=== PATIENT | male | born 1955 | race Caucasian/White ===

== ENCOUNTER → 2016-06-26 12:38 | Outpatient (CLI) | payer OTHER | END | disposition home or self-care (01) | LOC: D.ECHO 12:38 | DX: I63.139 Cerebral infarction due to embolism of unspecified carotid artery (principal); F17.218 Nicotine dependence, cigarettes, with other nicotine-induced disorders; Z91.19 Patient's noncompliance with other medical treatment and regimen ==

== ENCOUNTER → 2016-07-13 10:00 | Outpatient (CLI) | payer OTHER | END | disposition home or self-care (01) | LOC: D.CT 10:00 | DX: I63.131 Cerebral infarction due to embolism of right carotid artery (principal) ==

== ENCOUNTER → 2017-12-24 10:33 | Outpatient (CLI) | payer SELFPAY | END | disposition home or self-care (01) | LOC: D.RT 10:33 | DX: J44.9 Chronic obstructive pulmonary disease, unspecified (principal) ==

== ENCOUNTER → 2017-12-24 17:47 | Outpatient (CLI) | payer OTHER | END | disposition home or self-care (01) | LOC: D.LABREF 17:47 | DX: J44.9 Chronic obstructive pulmonary disease, unspecified (principal) ==

== ENCOUNTER → 2018-01-21 10:52 | Outpatient (CLI) | payer OTHER | END | disposition home or self-care (01) | LOC: D.CT 01-20 11:00 | DX: R93.89 Abnormal findings on diagnostic imaging of other specified body structures (principal) ==

== ENCOUNTER 2018-01-28 07:41 | Outpatient (CLI) | payer OTHER ==
[~2018-01-28] VITALS: Ht 172.7 cm; Wt 100.0 kg
--- NOTE | ~2018-01-28 | OP ---
PATIENT NAME: RAJ BARROW MEDICAL RECORD: [id number] :53 LOCATION:[facility] ADMISSION DATE: SURGEON: FELIX GOULD MD DATE OF OPERATION: 01/28/2018 PROCEDURE: Fiberoptic bronchoscopy. INDICATION: Mr. Barrow is a 62-year-old gentleman who has a history of smoking, chronic cough and he has a CT scan of the chest, which showed subtle bronchiectasis as well as infiltrate in left lower lobe, left mid lung area. Fiberoptic bronchoscopy was carried out to obtain specimen for culture and sensitivity. MONITORING: EKG, pulse, and blood pressure were monitored throughout the procedure. MEDICATIONS: Versed 4 mg IV in divided doses, fentanyl 50 mcg IV times 1, morphine sulfate 4 mg IM, Phenergan 12.5 mg IV times 1, atropine 0.6 mg IM times 1. DESCRIPTION OF PROCEDURE: After obtaining conscious sedation, the fiberoptic bronchoscope was easily passed through the mouth. The epiglottis was normal. The vocal cords were normal and moving equally on phonation. The left vocal cord is a bit atrophic. The main trachea was normal. The chapis was sharp. The left main bronchus, subsegment to the left upper lobe lingula, left lower lobe within normal range. No endobronchial lesion was seen. The right main bronchus was normal. The subsegment to the right upper lobe, right middle lobe, right lower lobe was within normal range. No endobronchial lesion was seen. There are whitish secretions bilaterally. Specimen washing was obtained, left upper lobe lingula, left lower lobe and sent for routine culture and sensitivity, AFB and fungus; as well as secretion from the right side, sent this specimen for routine culture and sensitivity, AFB and fungus and cytology. Overall, the patient tolerated the procedure very well. TRANSINT:[id number] Voice Confirmation ID: [id number] DOCUMENT ID: [id number] FELIX GOULD MD at 1339 CC: [id number] DICTATION DATE: 01/28/18 1148 SCREEDMAN: 01/28/18 1230 DEP CLI 01/28/18 [place] [address]
[2018-01-28 08:50] LABS: BASOPHILS 1.2 % (0-2); EOSINOPHILS 3.4 % (0-7); HEMATOCRIT 42.6 % (42.0-54.0); HEMOGLOBIN 14.6 g/dL (13.5-17.5); IMMATURE GRANULOCYTES 0.3 % (0-5); LYMPHOCYTES 25.8 % (15-50); MCH 30.6 pg (26.0-34.0); MCHC 34.3 g/dL (31.0-37.0); MCV 89.3 fL (80.0-100.0); MEAN PLATELET VOLUME 10.3 fL (7.4-10.4); MONOCYTES 8.4 % (2-11); NEUTROPHILS 60.9 % (40-80); PLATELET COUNT 241 10x3/uL (130-400); RBC 4.77 10x6/uL (4.20-6.10); RDW 12.9 % (11.5-14.5); WBC 7.4 10x3/uL (4.8-10.8)
[2018-01-28 08:55] LABS: APTT 29.6 SECONDS (22.8-39.4); INR 0.97 (0.85-1.17); PROTIME 12.4 SECONDS (11.6-15.0)
[2018-01-28] MEDS ORDERED: PROSCAR5 MG PO (08:59)
[2018-01-28] MEDS ORDERED: HCTZ25 MG PO (09:00)
[2018-01-28] MEDS ORDERED: PLAVIX75 MG PO (09:00)
[2018-01-28] MEDS ORDERED: NORVASC10 MG PO ×2 (09:01→09:03)
[2018-01-28] MEDS ORDERED: SPIRIVA18 MCG INH (09:01)
[2018-01-28] MEDS ORDERED: ALBUTEROL SULF8.5 GM INH (09:02)
[2018-01-28] MEDS ORDERED: FLOMAX0.4 MG PO (09:02)
[2018-01-28] MEDS ORDERED: SYMBICORT 16010.2 GM INH (09:02)
[2018-01-28] MEDS ORDERED: COZAAR50 MG PO (09:03)
[2018-01-28 09:14] VITALS: Ht 172.7 cm; Wt 100.0 kg
[2018-01-29 13:19] LABS: FUNGUS STAIN Final report (())
[2018-01-29 19:12] LABS: ACID FAST SMEAR Negative (()); AFB SPECIMEN PROCESSING Concentration (())
== END 2018-01-28 13:41 | disposition home or self-care (01) ==
LOC: D.OPS 07:41
PROVIDERS: Internal Medicine Pulmonary Disease
DX: J47.9 Bronchiectasis, uncomplicated (principal); R93.89 Abnormal findings on diagnostic imaging of other specified body structures; F17.200 Nicotine dependence, unspecified, uncomplicated; J30.2 Other seasonal allergic rhinitis; Z01.812 Encounter for preprocedural laboratory examination